=== PATIENT | female | born 1985 | race Caucasian/White ===

== ENCOUNTER 2024-01-17 09:31 | Day surgery (SDC) | payer OTHER ==
[~2024-01-17] VITALS: Ht 167.6 cm; Wt 107.5 kg
[2024-01-17] MEDS ORDERED: MIDAZOLAM 2 MG/2 ML VIAL ONE (11:19)
[2024-01-17] MEDS ORDERED: fentaNYL citrate 0.05 MG/ML VIAL ONE (11:19)
[2024-01-17] MEDS ORDERED: METOCLOPRAMIDE 10 MG/2 ML INJ VIAL ONE (11:23)
[2024-01-17] MEDS ORDERED: PROPOFOL 200 MG/20 ML VIAL IV ONE (11:23)
[2024-01-17] MEDS ORDERED: ONDANSETRON 4 MG/2 ML VIAL ONE (11:23)
[2024-01-17] MEDS ORDERED: LIDOCAINE MPF 2% 100 MG/5 ML VIAL INJ ONE (11:24)
[2024-01-17] MEDS ORDERED: SEVOFLURANE 250 ML BTL INH ONE (11:25)
[2024-01-17] MEDS ORDERED: KETOROLAC 30 MG/ML VIAL ONE (12:04)
[2024-01-17] MEDS ORDERED: MEPERIDINE 25 MG/ML SYR IVP PRN (12:25)
[2024-01-17] MEDS ORDERED: diphenhydrAMINE 50 MG/ML VIAL IVP PRN (12:25)
[2024-01-17] MEDS ORDERED: LACTATED RINGERS 1,000 ML IV SCH (12:25)
[2024-01-17] MEDS ORDERED: HYDROmorphone 1 MG/ML AMP IVP PRN (12:25)
[2024-01-17] MEDS ORDERED: ONDANSETRON 4 MG/2 ML VIAL IVP PRN (12:25)
== END 2024-01-17 14:05 | disposition home or self-care (01) ==
LOC: MDS 09:31 → MMU 09:32 → MDS 14:05
PROVIDERS: ATTEND Obstetrics & Gynecology
DX: N92.0 Excessive and frequent menstruation with regular cycle (principal); N93.9 Abnormal uterine and vaginal bleeding, unspecified; E07.9 Disorder of thyroid, unspecified; Z98.891 History of uterine scar from previous surgery; Z83.3 Family history of diabetes mellitus; Z79.899 Other long term (current) drug therapy; Z98.890 Other specified postprocedural states
CPT/HCPCS: 58558; J1885; J2001; J2250; J2405; J2704; J2765; J3010